=== PATIENT | female | born 1975 | race Caucasian/White ===

== ENCOUNTER 2017-09-25 10:25 | Emergency (ER) | payer OTHER ==
[2017-09-25] MEDS ORDERED: NS 0.9% 1000 ML* 1,000 ML IV ONE (11:18)
[2017-09-25] MEDS ORDERED: Ondansetron INJ* 2 MG/ML VIAL IV ONE (11:18)
[2017-09-25 11:24] LABS: ABS Basophils 0 10^3/ul (0-0.2); ABS Eosinophils 0.2 10^3/ul (0-0.6); ABS Lymphocytes 1.2 10^3/ul (1.0-4.8); ABS Monocytes 0.6 10^3/ul (0-0.8); ABS Neutrophils 3.5 10^3/ul (1.5-7.7); ABS Nucleated RBC 0 10^3/ul; Eosinophil % 2.8 % (0-6); Hematocrit 42 % (35-47); Hemoglobin 14.3 g/dl (12.0-16.0); Lymphocyte % 21.6 % (25-47); Mean Corpuscular HGB Conc 34 g/dl (31-36); Mean Corpuscular Hemoglobin 33 pg (27-31); Mean Corpuscular Volume 96 fL (80-97); Mean Platelet Volume 8 um3 (7.4-10.4); Nucleated Red Blood Cells % 0; Platelet Count 233 10^3/ul (150-450); Red Blood Count 4.38 10^6/ul (4.0-5.4); Red Cell Distribution Width 12 % (10.5-15); White Blood Count 5.5 10^3/ul (3.5-10.8)
[2017-09-25 11:40] LABS: EGFR Non-African American 97.5 (>60)
--- NOTE | 2017-09-25 12:21 | RAD ---
Indication: 15 weeks 2 days based on previous outside office ultrasound. Bleeding. Comparison: No prior exams available on the [facility] for comparison. Technique: Transabdominal obstetrical ultrasound. Report: Single intrauterine gestation with 5.24 cm crown-rump length which would correspond with 12 weeks 0 days gestation smaller than expected based on reported prior ultrasound. No movement or cardiac activity detected. Some inward directed margins of the gestational sac. The gestational sac is positioned low within the uterus approximating the internal os. No perigestational hemorrhage evident. The cervix measures 3.4 cm in length. 2.5 x 2.2 x 2.6 cm RIGHT fundal fibroid. 3.3 x 1.7 x 1.9 cm RIGHT ovary with documented vascular flow. The LEFT ovary could not be visualized. No suspicious extraovarian adnexal region lesions evident. IMPRESSION: The constellation of findings is consistent with demise/nonviable intrauterine gestation.
[2017-09-25] MEDS ORDERED: LORazepam TAB(*) 1 MG PO ONE (12:44)
[2017-09-25 12:55] VITALS: BP 142/89
--- NOTE | 2017-09-25 18:03 | ED ---
Rambo Zimmer Natalie, scribed for Edwardo Wolf MD on 09/25/17 at 1143 . - HPI Summary HPI Summary: The pt is a 42 y/o F presenting to the ED c/o low abd pain and vaginal bleeding starting last night. The pt is in the sixteenth week of her fifth . Starting two days ago, the pt had worse flu in a long time with diarrhea, 100.8F fever, and loss of appetite. Last night, the flu-like symptoms went away , but the pt started having lower abd cramping and vaginal bleeding. The bleeding is described as pinkish-red and brown and more than spotting but less than a normal period. Pt denies having contractions. She has had one ultrasounds to confirm her at 8 weeks. She is known to be Rh positive The pt does not smoke or drink. She has hx of vitiligo and chronic HTN. - History of Current Complaint Chief Complaint: EDOBProblems Stated Complaint: 16 WKS PREG/BLEEDING Time Seen by Provider: 09/25/17 11:03 Hx Obtained From: Patient Chief Complaint: Pain - cramping in low abd, Vaginal Bleeding Onset/Duration: Started Hours Ago - vaginal bleeding and cramping started last night, Still Present Severity: Moderate Current Severity: Moderate Pain Intensity: 4 Location of Pain: Other: - low abd Character: Cramping Aggravating Factors: Nothing Alleviating Factors: Nothing Associated Signs and Symptoms: Positive: Other: - POSITIVE: cramping in low abd , diarrhea, fever of 100.8F, loss of appetite, vaginal bleeding; NEGATIVE: contractions - Allergies/Home Medications Allergies/Adverse Reactions: Allergies Allergy/AdvReac Type Severity Reaction Status Date / Time No Known Allergies Allergy Verified 09/25/17 10:30 PMH/Surg Hx/FS Hx/Imm Hx Previously Healthy: No Cardiovascular History: Reports: Hx Hypertension Musculoskeletal History: Reports: Other Musculoskeletal History - vitiligo Infectious Disease History: No Infectious Disease History: Denies: Traveled Outside the [place] in Last 30 Days - Family History Known Family History: Positive: Cardiac Disease, Hypertension - Social History Alcohol Use: None Substance Use Type: Reports: None Smoking Status (MU): Former Smoker Review of Systems Positive: Fever Positive: Abdominal Pain, Diarrhea, Other - loss of appetite Positive: other - POSITIVE: vaginal bleeding; NEGATIVE: contractions All Other Systems Reviewed And Are Negative: Yes Physical Exam - Physical Exam Triage Information Reviewed: Yes Vital Signs Reviewed: Yes Appearance: Positive: Well-Appearing, No Pain Distress Skin: Positive: Warm, Skin Color Reflects Adequate Perfusion, Dry, Other - vitiligo of skin Head/Face: Positive: Normal Head/Face Inspection Eyes: Positive: EOMI, ENDER ENT: Positive: Other - tacky mucuous membranes Neck: Positive: Supple, Nontender Respiratory/Lung Sounds: Positive: Clear to Auscultation, Breath Sounds Present Cardiovascular: Positive: RRR, Pulses are Symmetrical in both Upper and Lower Extremities Abdomen Description: Positive: Other: - mild tenderness everywhere Bowel Sounds: Positive: Other - decreased bowel sounds Musculoskeletal: Positive: Normal, Strength/ROM Intact Neurological: Positive: Normal, Sensory/Motor Intact, Alert, Oriented to Person Place, Time Diagnostics - Vital Signs Vital Signs Temp Pulse Resp BP Pulse Ox 09/25/17 10:30 97.6 F 69 16 139/92 99 - Laboratory Lab Results: Lab Results 09/25/17 Range/Units 11:15 WBC 5.5 (3.5-10.8) 10^3/ul RBC 4.38 (4.0-5.4) 10^6/ul Hgb 14.3 (12.0-16.0) g/dl Hct 42 (35-47) % MCV 96 (80-97) fL MCH 33 H (27-31) pg MCHC 34 (31-36) g/dl RDW 12 (10.5-15) % Plt Count 233 (150-450) 10^3/ul MPV 8 (7.4-10.4) um3 Neut % (Auto) 63.7 (38-83) % Lymph % (Auto) 21.6 L (25-47) % [place] % (Auto) 11.1 H (1-9) % Eos % (Auto) 2.8 (0-6) % Baso % (Auto) 0.8 (0-2) % Absolute Neuts (auto) 3.5 (1.5-7.7) 10^3/ul Absolute Lymphs (auto) 1.2 (1.0-4.8) 10^3/ul Absolute Monos (auto) 0.6 (0-0.8) 10^3/ul Absolute Eos (auto) 0.2 (0-0.6) 10^3/ul Absolute Basos (auto) 0 (0-0.2) 10^3/ul Absolute Nucleated RBC 0 10^3/ul Nucleated RBC % 0 Result Diagrams: 09/25/17 11:15 09/25/17 11:15 Diagnostic Studies Comment: O+ Lab Statement: Any lab studies that have been ordered have been reviewed, and results considered in the medical decision making process. - Ultrasound No standard instances Ultrasound Interpretation: Positive (See Comments) - Ultrasound. The constellation of findings is consistent with demise/nonviable intrauterine gestation. ED physician has reviewed this report. Ultrasound Interpretation Completed By: Radiologist Course/Dx - Course Course Of Treatment: Pt with likely AGE and now has been found to have missed AB. D/W OB, will f/u. Did not recommend methergine, etc. - Differential Diagnosis/HQI/PQRI: Incomplete , Missed , Threatened , Other: - AGE - Diagnoses Provider Diagnoses: Missed , Gastroenteritis - Provider Notifications Discussed Care Of Patient With: Tung Decker Time Discussed With Above Provider: 12:40 Discharge - Discharge Plan Condition: Good Disposition: HOME Prescriptions: hydrOXYzine HCL TAB* [Atarax 25 MG TAB*] 25 mg PO TID PRN #10 tab PRN Reason: Anxiety Patient Education Materials: Miscarriage (ED) Referrals: [facility] [Provider Group] Additional Instructions: Call today for an appt. Return with heavy bleeding, uncontrolled pain, worse or other concerns. You may take ibuprofen or tylenol for discomfort. The documentation as recorded by the Rambo hall Natalie accurately reflects the service I personally performed and the decisions made by , Edwardo Wolf MD.
== END 2017-09-25 13:26 | disposition home or self-care (01) ==
LOC: ED 10:25
DX: O02.1 Missed abortion (principal); K52.9 Noninfective gastroenteritis and colitis, unspecified; R10.30 Lower abdominal pain, unspecified; R19.7 Diarrhea, unspecified; R50.9 Fever, unspecified; Z87.891 Personal history of nicotine dependence
CPT/HCPCS: 36415; 76805; 80053; 83690; 85025; 86900; 86901; 96361; 96374; 99282; A9270-GY; J2405

== ENCOUNTER 2017-10-07 16:13 | Day surgery (SDC) | payer OTHER ==
[2017-10-07] MEDS ORDERED: Buffered Lidocaine 0.9% SYRIN* 5 ML/SYR SYRINGE ONE (16:29)
[2017-10-07 16:58] LABS: ABS Basophils 0.1 10^3/ul (0-0.2); ABS Eosinophils 0.1 10^3/ul (0-0.6); ABS Lymphocytes 1.2 10^3/ul (1.0-4.8); ABS Monocytes 0.8 10^3/ul (0-0.8); ABS Neutrophils 4.9 10^3/ul (1.5-7.7); ABS Nucleated RBC 0 10^3/ul; Eosinophil % 1.4 % (0-6); Hematocrit 40 % (35-47); Hemoglobin 13.7 g/dl (12.0-16.0); Lymphocyte % 17.5 % (25-47); Mean Corpuscular HGB Conc 34 g/dl (31-36); Mean Corpuscular Hemoglobin 33 pg (27-31); Mean Corpuscular Volume 96 fL (80-97); Mean Platelet Volume 8 um3 (7.4-10.4); Nucleated Red Blood Cells % 0; Platelet Count 239 10^3/ul (150-450); Red Blood Count 4.23 10^6/ul (4.0-5.4); Red Cell Distribution Width 13 % (10.5-15); White Blood Count 7.1 10^3/ul (3.5-10.8)
[2017-10-07] MEDS ORDERED: DOXYcycline IV* 100 MG in NS 0.9% 250 ML* 250 ML IVPB ONE (18:29)
[2017-10-07] MEDS ORDERED: Midazolam* 1 MG/ML 10 ML VIAL (10 MG) ONE (20:48)
[2017-10-07] MEDS ORDERED: Lidocaine 2% PF * 5 ML VIAL ONE (20:48)
[2017-10-07] MEDS ORDERED: Dexamethasone IV* 4 MG/ML 1 ML (4 MG) ONE (20:48)
[2017-10-07] MEDS ORDERED: Propofol* 10 MG/ML 20 ML BTL IV PUSH ONE ×2 (20:48→21:13)
[2017-10-07] MEDS ORDERED: KETAMINE HCL* 50 MG/ML 10 ML VIAL ONE (20:48)
[2017-10-07] MEDS ORDERED: Ondansetron INJ* 2 MG/ML VIAL ONE (20:48)
[2017-10-07] MEDS ORDERED: fentaNYL* 50 MCG/ML 2 ML VIAL (100 MCG VIAL) ONE (20:48)
[2017-10-07] MEDS ORDERED: Lidocaine 1% INJ* 10 MG/ML 30 ML SDV ONE (21:07)
[2017-10-07] MEDS ORDERED: Ondansetron INJ* 2 MG/ML VIAL IV PRN (21:55)
[2017-10-07] MEDS ORDERED: oxyCODONE/Acetamin 5/325 MG* TAB PO PRN (21:55)
[2017-10-07] MEDS ORDERED: fentaNYL* 50 MCG/ML 2 ML VIAL (100 MCG VIAL) IV PRN (21:55)
[2017-10-07] MEDS ORDERED: Naloxone* 0.4 MG/ML 1 ML VIAL IV PRN (21:55)
[2017-10-07 22:02] VITALS: BP 137/81
--- NOTE | 2017-10-12 04:13 | OP ---
DATE OF OPERATION: 10/07/17 - [facility] DATE OF : 79 SURGEON: Micaela Goss MD ANESTHESIA: MAC and cervical block. PRE-OP DIAGNOSIS: Incomplete . POST-OP DIAGNOSIS: Incomplete . OPERATIVE PROCEDURE: Suction dilation and curettage. ESTIMATED BLOOD LOSS: Minimal. URINE OUTPUT: 100 cc. IV FLUIDS: 150 cc lactated Ringer's. MATERIALS TO LAB: Products of conception. INDICATIONS: This patient is a 42-year-old 5, para 4, seen last week after she appeared to have completed a first trimester miscarriage at home. Initial ultrasound last week had shown a small amount of heterogenous material inside the uterus, which could have been retained products versus blood and debris. At that point, the patient's bleeding had been very light. She returned for followup on the day of surgery and repeat ultrasound showed the area inside the uterus was significantly more dense than before and the patient' s bleeding had continued to be somewhat moderate. Considering these findings, the patient was advised to proceed with D and C to remove likely retained products of conception. The patient was extensively counseled and consent was signed. FINDINGS: Suction D and C was productive of a single approximately 1.5 x 2.5 piece of tissue that appeared consistent with the tissue seen on ultrasound. The remainder of the uterus was smooth and clean. COMPLICATIONS: None. DESCRIPTION OF PROCEDURE: The risks, benefits, and alternatives were described with the patient and informed consent was obtained. The patient was taken to the operating room with IV running, where heavy sedation was administered. The patient was prepped and draped in the normal sterile fashion in the high lithotomy position and Carrillo stirrups. A time-out was performed. The bladder was emptied. A bivalved speculum was placed in the vagina and a single-tooth tenaculum was placed on the anterior cervix. The uterus was sounded to about 9 cm. Attempt was made with an ultrasound to visualize the uterine cavity; however, due to the patient's habitus and the very retroverted uterus, the uterus could not be well visualized. The cervix was already dilated to a size 30 of Hanks dilator. A size 8 curved suction curette was then advanced through the cervix and into the uterine cavity without difficulty. Suction was activated and with one pass; there was a fairly large piece of tissue that was obtained. Once this was removed from the suction, another pass was performed without any additional tissue noted. A medium banjo curette was then used to gently probe the entire uterine cavity and there was no additional tissue obtained. There was minimal bleeding from the uterus at that time. The tenaculum was removed from the cervix and there was good hemostasis present after applying pressure with a sponge stick. The speculum was removed and the patient was returned to the supine position. The patient tolerated the procedure well. Sponge, lap and needle counts were correct x2. [id number]/[facility] #: [id number] [facility]
== END 2017-10-07 22:22 | disposition home or self-care (01) ==
LOC: OR 16:13
PROVIDERS: ATTEND Obstetrics & Gynecology
DX: O03.39 Incomplete spontaneous abortion with other complications (principal)
CPT/HCPCS: 36415; 85025; 86850; 86900; 86901; 87502; 88305; J1100; J2250; J2405; J2704; J3010